=== PATIENT | female | born 1965 | race Caucasian/White ===

== ENCOUNTER 2018-07-09 14:42 | Inpatient (IN) | payer OTHER, SELFPAY ==
[2018-07-09 15:32] LABS: BASO % 0.1 % (0.0-1.0); HEMATOCRIT 39.3 % (36.0-47.0); HEMOGLOBIN 12.8 g/dl (12.0-15.5); IMMATURE GRANULOCYTE % 0.4 % (0-3.0); LYMPH % 11.5 % (24.0-44.0); MEAN CORPUSCULAR HEMOGLOBIN 33.1 pg (27.0-33.0); MEAN CORPUSCULAR HGB CONC 32.6 g/dl (32.0-36.5); MEAN CORPUSCULAR VOLUME 101.6 fl (80.0-96.0); MONO # 0.8 10^3/uL (0.0-0.8); MONO % 9.9 % (0.0-5.0); NEUTROPHILS # 6.6 10^3/uL (1.8-7.7); NEUTROPHILS % 78.1 % (36.0-66.0); PLATELET COUNT, AUTOMATED 262 10^3/uL (150-450); RED BLOOD COUNT 3.87 10^6/uL (4.00-5.40); WHITE BLOOD COUNT 8.4 10^3/uL (4.0-10.0)
[2018-07-09 15:42] LABS: BEDSIDE GLUCOSE 90 MG/DL (70-105)
[2018-07-09 15:43] LABS: INR 0.94; PROTHROMBIN TIME 12.6 SECONDS (12.1-14.4)
[2018-07-09 15:44] LABS: PARTIAL THROMBOPLASTIN TIME 28.2 SECONDS (25.4-37.6)
[2018-07-09 15:51] LABS: CONTROL LINE HCG INT CTR LINE PRESENT; HCG, SERUM QUALITATIVE NEGATIVE (NEGATIVE)
[2018-07-09 15:55] LABS: AMMONIA < 10 uMOL/L (<32)
[2018-07-09 16:00] LABS: ALBUMIN 3.7 GM/DL (3.2-5.2); ALBUMIN/GLOBULIN RATIO 1.09 (1.00-1.93); ALKALINE PHOSPHATASE 110 U/L (45-117); ALT/SGPT 70 U/L (12-78); ANION GAP 8 MEQ/L (8-16); AST/SGOT 95 U/L (7-37); BILIRUBIN,DIRECT < 0.1 MG/DL (0.0-0.2); BILIRUBIN,TOTAL 0.4 MG/DL (0.2-1.0); BLOOD UREA NITROGEN 17 MG/DL (7-18); CALCIUM LEVEL 9.3 MG/DL (8.5-10.1); CARBON DIOXIDE LEVEL 33 MEQ/L (21-32); CHLORIDE LEVEL 100 MEQ/L (98-107); ETHYL ALCOHOL (ETHANOL) < 0.003 % (0.000-0.010); GLOMERULAR FILTRATION RATE > 60.0 (>51); GLUCOSE, FASTING 90 MG/DL (70-100); POTASSIUM SERUM 4.5 MEQ/L (3.5-5.1); SALICYLATE LEVEL 2.9 MG/DL (5.0-30.0); SODIUM LEVEL 141 MEQ/L (136-145); TOTAL PROTEIN 7.1 GM/DL (6.4-8.2); TROPONIN I 0.02 NG/ML (< 0.10)
[2018-07-09 16:02] LABS: LACTIC ACID SEPSIS PROTOCOL 1.1 MMOL/L (0.4-2.0)
[2018-07-09 16:11] LABS: ACETAMINOPHEN LEVEL < 2.0 UG/ML (10.0-30.0); CK-MB VALUE MASS 21.2 NG/ML (<3.6); CPK CREATINE PHOSPHOKINASE 1699 U/L (26-192); MB/CK RELATIVE INDEX 1.24 (< OR =4); THYROID STIMULATING HORMONE 0.696 uIU/ML (0.358-3.740)
[2018-07-09] MEDS: NS 1,000 ML IV ×2 (16:31→17:46)
[2018-07-09 16:52] LABS: KETONE, URINE AUTO RFX 2+ mg/dL (NEGATIVE); MUCUS, URINE RFX SMALL (NEGATIVE); NITRITE, URINE AUTO RFX NEGATIVE (NEGATIVE); RBC, URINE AUTO RFX 2 /HPF (0-3); SPECIFIC GRAVITY UR AUTO RFX 1.024 (1.002-1.035); SQUAM EPITHELIAL CELL UR AURFX 1 /HPF (0-6); WBC, URINE AUTO RFX 5 /HPF (0-3)
[2018-07-09 16:53] LABS: LEUKOCYTE ESTERASE UR AUTO RFX TRACE (NEGATIVE)
[2018-07-09 18:02] LABS: AMPHETAMINES LEVEL URINE NEGATIVE (NEGATIVE); BARBITURATES URINE NEGATIVE (NEGATIVE); BENZODIAZEPINES URINE NEGATIVE (NEGATIVE); CANNABINOIDS URINE NEGATIVE (NEGATIVE); COCAINE METABOLITE URINE NEGATIVE (NEGATIVE); METHADONE URINE NEGATIVE (NEGATIVE); OPIATES URINE NEGATIVE (NEGATIVE); PHENCYCLIDINE URINE NEGATIVE (NEGATIVE)
[2018-07-09] MEDS ORDERED: ACETAMINOPHEN TAB 650MG DOSE (2X325MG) PO (19:30)
[2018-07-09] MEDS ORDERED: PERCOCET 5MG/325MG TAB PO (19:30)
[2018-07-09] MEDS ORDERED: ONDANSETRON 4MG/2ML VIAL (J2405) IV (19:30)
[2018-07-09 19:40] LABS: CSF MONONUCLEAR CELL % 25.8 % (0-0); CSF POLYMORPHONUCLEAR CELL % 74.2 % (0-0); CSF RBC 10 10^3/uL (<2); CSF WBC 31 /uL (0-10)
[2018-07-09 19:42] LABS: CSF RBC < 2 10^3/uL (<2)
[2018-07-09 19:51] LABS: APPEARANCE, CSF HAZY (CLEAR); COLOR, CSF PINK (COLORLESS); CSF TUBE# CELL CNT TUBE 1
[2018-07-09 19:52] LABS: APPEARANCE, CSF CLEAR (CLEAR); COLOR, CSF COLORLESS (COLORLESS); CSF DIFF IF INDICATED? NO (NO); CSF DIFF IF INDICATED? YES (NO); CSF TUBE# CELL CNT TUBE 4; CSF WBC 4 /uL (0-10)
[2018-07-09 19:57] LABS: CSF TUBE# GLU TUBE 2; CSF TUBE# TP TUBE 2; GLUCOSE CSF 57 MG/DL (40-75); TOTAL PROTEIN,CSF 39.6 MG/DL (15-45)
[2018-07-09 22:48] LABS: TROPONIN I < 0.02 NG/ML (< 0.10)
[2018-07-09 22:59] LABS: CK-MB VALUE MASS 10.4 NG/ML (<3.6); CPK CREATINE PHOSPHOKINASE 1286 U/L (26-192)
[2018-07-10] MEDS: LR 1,000 ML IV ×2 (01:39→08:49)
[2018-07-10] MEDS: SENOKOT S TAB PO ×2 (01:40→08:47)
[2018-07-10] MEDS: ENOXAPARIN 40 MG/0.4 ML SYRINGE (J1650) SC ×2 (01:43→20:34)
[2018-07-10 05:30] LABS: HEMATOCRIT 35.4 % (36.0-47.0); HEMOGLOBIN 11.7 g/dl (12.0-15.5); MEAN CORPUSCULAR HGB CONC 33.1 g/dl (32.0-36.5); MEAN CORPUSCULAR VOLUME 99.7 fl (80.0-96.0); PLATELET COUNT, AUTOMATED 223 10^3/uL (150-450); RED BLOOD COUNT 3.55 10^6/uL (4.00-5.40); RED CELL DISTRIBUTION WIDTH 11.9 % (11.5-14.5); WHITE BLOOD COUNT 6.6 10^3/uL (4.0-10.0)
[2018-07-10 05:49] LABS: ALBUMIN 3.2 GM/DL (3.2-5.2); ALBUMIN/GLOBULIN RATIO 0.97 (1.00-1.93); ALKALINE PHOSPHATASE 95 U/L (45-117); ALT/SGPT 58 U/L (12-78); ANION GAP 7 MEQ/L (8-16); AST/SGOT 62 U/L (7-37); BILIRUBIN,TOTAL 0.4 MG/DL (0.2-1.0); BLOOD UREA NITROGEN 13 MG/DL (7-18); CALCIUM LEVEL 8.6 MG/DL (8.5-10.1); CARBON DIOXIDE LEVEL 29 MEQ/L (21-32); CHLORIDE LEVEL 105 MEQ/L (98-107); CK-MB VALUE MASS 5.3 NG/ML (<3.6); CPK CREATINE PHOSPHOKINASE 908 U/L (26-192); CREATININE FOR GFR 0.46 MG/DL (0.55-1.30); GLOMERULAR FILTRATION RATE > 60.0 (>51); GLUCOSE, FASTING 82 MG/DL (70-100); MB/CK RELATIVE INDEX 0.58 (< OR =4); POTASSIUM SERUM 3.8 MEQ/L (3.5-5.1); SODIUM LEVEL 141 MEQ/L (136-145); TOTAL PROTEIN 6.5 GM/DL (6.4-8.2); TROPONIN I < 0.02 NG/ML (< 0.10)
[2018-07-10] MEDS: THIAMINE 100 MG TAB PO (08:47)
[2018-07-10] MEDS: MULTIVITAMINS/MINERALS THERAP 1 TAB PO (08:47)
[2018-07-10] MEDS: FOLIC ACID 1 MG TAB PO (08:47)
[2018-07-10] MEDS: VANCOMYCIN HCL 1,000 MG, VIAL MATE ADAPTER 1 EACH in D5W 250 ML IV (14:54)
[2018-07-10] MEDS: diazePAM 2 MG TAB PO (15:42)
[2018-07-10] MEDS: POTASSIUM CHLORIDE 10 MEQ SR TABLET PO ×2 (15:57→20:35)
[2018-07-10] MEDS: MAG SULF 1GM/100ML (MAG RUN) 1 GM in APPROPRIATE DILUENT 1 EA IV ×2 (17:30→18:12)
[2018-07-10] MEDS: MAGNESIUM OXIDE 400 MG TAB (MAG-OX) PO (20:35)
[2018-07-10] MEDS: MEXILETINE 150 MG CAP PO (22:12)
[2018-07-11 00:27] LABS: ANION GAP 5 MEQ/L (8-16); BLOOD UREA NITROGEN 6 MG/DL (7-18); CALCIUM LEVEL 8.3 MG/DL (8.5-10.1); CARBON DIOXIDE LEVEL 30 MEQ/L (21-32); CHLORIDE LEVEL 109 MEQ/L (98-107); CREATININE FOR GFR 0.41 MG/DL (0.55-1.30); GLOMERULAR FILTRATION RATE > 60.0 (>51); GLUCOSE, FASTING 111 MG/DL (70-100); MAGNESIUM LEVEL 2.1 MG/DL (1.8-2.4); POTASSIUM SERUM 3.5 MEQ/L (3.5-5.1); SODIUM LEVEL 144 MEQ/L (136-145)
[2018-07-11] MEDS: POTASSIUM CHLORIDE 10 MEQ SR TABLET PO ×3 (01:37→21:24)
[2018-07-11] MEDS: MEXILETINE 150 MG CAP PO ×3 (05:32→21:24)
[2018-07-11] MEDS: CEFTAROLINE FOSAMIL 600 MG in D5W MINI-BAG PLUS 50 ML IV ×2 (05:32→17:15)
[2018-07-11 06:23] LABS: HEMATOCRIT 33.9 % (36.0-47.0); HEMOGLOBIN 11.7 g/dl (12.0-15.5); MEAN CORPUSCULAR HEMOGLOBIN 32.8 pg (27.0-33.0); MEAN CORPUSCULAR HGB CONC 34.5 g/dl (32.0-36.5); PLATELET COUNT, AUTOMATED 256 10^3/uL (150-450); RED BLOOD COUNT 3.57 10^6/uL (4.00-5.40); RED CELL DISTRIBUTION WIDTH 11.7 % (11.5-14.5); WHITE BLOOD COUNT 6.8 10^3/uL (4.0-10.0)
[2018-07-11 06:43] LABS: ALBUMIN 3.2 GM/DL (3.2-5.2); ALBUMIN/GLOBULIN RATIO 1.03 (1.00-1.93); ALKALINE PHOSPHATASE 89 U/L (45-117); ALT/SGPT 47 U/L (12-78); ANION GAP 5 MEQ/L (8-16); AST/SGOT 38 U/L (7-37); BILIRUBIN,TOTAL 0.3 MG/DL (0.2-1.0); BLOOD UREA NITROGEN 6 MG/DL (7-18); CALCIUM LEVEL 8.5 MG/DL (8.5-10.1); CARBON DIOXIDE LEVEL 28 MEQ/L (21-32); CHLORIDE LEVEL 112 MEQ/L (98-107); CREATININE FOR GFR 0.57 MG/DL (0.55-1.30); GLOMERULAR FILTRATION RATE > 60.0 (>51); GLUCOSE, FASTING 110 MG/DL (70-100); MAGNESIUM LEVEL 2.3 MG/DL (1.8-2.4); SODIUM LEVEL 145 MEQ/L (136-145); TOTAL PROTEIN 6.3 GM/DL (6.4-8.2)
[2018-07-11 06:45] LABS: CPK CREATINE PHOSPHOKINASE 507 U/L (26-192)
[2018-07-11] MEDS: LISINOPRIL 5 MG TAB PO ×2 (09:23→21:23)
[2018-07-11] MEDS: MAGNESIUM OXIDE 400 MG TAB (MAG-OX) PO ×2 (09:23→21:24)
[2018-07-11] MEDS ORDERED: SLF 3 ML SYR IV (11:00)
[2018-07-11] MEDS: SLF 3 ML SYR IV ×2 (13:55→21:24)
[2018-07-11] MEDS: ENOXAPARIN 40 MG/0.4 ML SYRINGE (J1650) SC (21:24)
[2018-07-12] MEDS: MEXILETINE 150 MG CAP PO ×3 (06:01→21:25)
[2018-07-12] MEDS: SLF 3 ML SYR IV ×3 (06:01→22:00)
[2018-07-12 06:19] LABS: HEMATOCRIT 34.9 % (36.0-47.0); MEAN CORPUSCULAR HGB CONC 34.4 g/dl (32.0-36.5); MEAN CORPUSCULAR VOLUME 95.9 fl (80.0-96.0); PLATELET COUNT, AUTOMATED 258 10^3/uL (150-450); RED BLOOD COUNT 3.64 10^6/uL (4.00-5.40); RED CELL DISTRIBUTION WIDTH 11.6 % (11.5-14.5); WHITE BLOOD COUNT 5.9 10^3/uL (4.0-10.0)
[2018-07-12 06:43] LABS: ALBUMIN 3.1 GM/DL (3.2-5.2); ALKALINE PHOSPHATASE 88 U/L (45-117); ALT/SGPT 42 U/L (12-78); ANION GAP 6 MEQ/L (8-16); AST/SGOT 23 U/L (7-37); BILIRUBIN,TOTAL 0.4 MG/DL (0.2-1.0); BLOOD UREA NITROGEN 3 MG/DL (7-18); CALCIUM LEVEL 8.6 MG/DL (8.5-10.1); CARBON DIOXIDE LEVEL 26 MEQ/L (21-32); CHLORIDE LEVEL 112 MEQ/L (98-107); CREATININE FOR GFR 0.57 MG/DL (0.55-1.30); GLOMERULAR FILTRATION RATE > 60.0 (>51); GLUCOSE, FASTING 103 MG/DL (70-100); MAGNESIUM LEVEL 1.8 MG/DL (1.8-2.4); POTASSIUM SERUM 3.9 MEQ/L (3.5-5.1); SODIUM LEVEL 144 MEQ/L (136-145); TOTAL PROTEIN 6.4 GM/DL (6.4-8.2)
[2018-07-12 07:05] LABS: ALBUMIN/GLOBULIN RATIO 0.94 (1.00-1.93)
[2018-07-12] MEDS: POTASSIUM CHLORIDE 10 MEQ SR TABLET PO ×2 (09:47→21:26)
[2018-07-12] MEDS: LISINOPRIL 10 MG TAB PO ×2 (09:48→21:27)
[2018-07-12] MEDS: MAGNESIUM OXIDE 400 MG TAB (MAG-OX) PO ×2 (09:48→21:26)
[2018-07-12] MEDS: ACETAMINOPHEN TAB 650MG DOSE (2X325MG) PO ×2 (09:49→21:26)
[2018-07-12] MEDS: ENOXAPARIN 40 MG/0.4 ML SYRINGE (J1650) SC (21:25)
[2018-07-13] MEDS: MEXILETINE 150 MG CAP PO ×3 (05:25→20:44)
[2018-07-13] MEDS: LISINOPRIL 10 MG TAB PO ×2 (05:25→20:44)
[2018-07-13] MEDS: SLF 3 ML SYR IV ×3 (05:40→20:45)
[2018-07-13 05:41] LABS: HEMATOCRIT 35.4 % (36.0-47.0); HEMOGLOBIN 12.4 g/dl (12.0-15.5); MEAN CORPUSCULAR HEMOGLOBIN 32.7 pg (27.0-33.0); MEAN CORPUSCULAR VOLUME 93.4 fl (80.0-96.0); PLATELET COUNT, AUTOMATED 301 10^3/uL (150-450); RED BLOOD COUNT 3.79 10^6/uL (4.00-5.40); RED CELL DISTRIBUTION WIDTH 11.5 % (11.5-14.5); WHITE BLOOD COUNT 5.8 10^3/uL (4.0-10.0)
[2018-07-13 05:58] LABS: ALBUMIN 3.5 GM/DL (3.2-5.2); ALBUMIN/GLOBULIN RATIO 1.09 (1.00-1.93); ALKALINE PHOSPHATASE 90 U/L (45-117); ALT/SGPT 43 U/L (12-78); ANION GAP 6 MEQ/L (8-16); AST/SGOT 31 U/L (7-37); BILIRUBIN,TOTAL 0.4 MG/DL (0.2-1.0); BLOOD UREA NITROGEN 4 MG/DL (7-18); CARBON DIOXIDE LEVEL 25 MEQ/L (21-32); CHLORIDE LEVEL 112 MEQ/L (98-107); CREATININE FOR GFR 0.65 MG/DL (0.55-1.30); GLOMERULAR FILTRATION RATE > 60.0 (>51); GLUCOSE, FASTING 102 MG/DL (70-100); MAGNESIUM LEVEL 1.9 MG/DL (1.8-2.4); POTASSIUM SERUM 3.8 MEQ/L (3.5-5.1); SODIUM LEVEL 143 MEQ/L (136-145); TOTAL PROTEIN 6.7 GM/DL (6.4-8.2)
[2018-07-13] MEDS ORDERED: amLODIPine 5 MG TAB PO (09:00)
[2018-07-13] MEDS: ACETAMINOPHEN TAB 650MG DOSE (2X325MG) PO ×2 (10:33→20:43)
[2018-07-13] MEDS: POTASSIUM CHLORIDE 10 MEQ SR TABLET PO ×2 (10:35→20:45)
[2018-07-13] MEDS: MAGNESIUM OXIDE 400 MG TAB (MAG-OX) PO ×2 (10:36→20:44)
[2018-07-13] MEDS: amLODIPine 5 MG TAB PO ×2 (10:36→20:44)
[2018-07-13] MEDS: ENOXAPARIN 40 MG/0.4 ML SYRINGE (J1650) SC (20:42)
[2018-07-14 00:07] LABS: COXSACKIE TYPE B1 Negative (Neg:<1:8); COXSACKIE TYPE B2 Negative (Neg:<1:8); COXSACKIE TYPE B3 Negative (Neg:<1:8); COXSACKIE TYPE B4 Negative (Neg:<1:8); COXSACKIE TYPE B5 Negative (Neg:<1:8); COXSACKIE TYPE B6 Negative (Neg:<1:8)
[2018-07-14] MEDS: MEXILETINE 150 MG CAP PO (05:44)
[2018-07-14] MEDS: SLF 3 ML SYR IV (05:45)
[2018-07-14 06:35] LABS: HEMATOCRIT 37.1 % (36.0-47.0); HEMOGLOBIN 13.2 g/dl (12.0-15.5); MEAN CORPUSCULAR HEMOGLOBIN 33.1 pg (27.0-33.0); MEAN CORPUSCULAR HGB CONC 35.6 g/dl (32.0-36.5); PLATELET COUNT, AUTOMATED 328 10^3/uL (150-450); RED BLOOD COUNT 3.99 10^6/uL (4.00-5.40); RED CELL DISTRIBUTION WIDTH 11.8 % (11.5-14.5); WHITE BLOOD COUNT 5.9 10^3/uL (4.0-10.0)
[2018-07-14 07:25] LABS: ALBUMIN 3.5 GM/DL (3.2-5.2); ALKALINE PHOSPHATASE 93 U/L (45-117); ALT/SGPT 44 U/L (12-78); ANION GAP 9 MEQ/L (8-16); AST/SGOT 26 U/L (7-37); BILIRUBIN,TOTAL 0.4 MG/DL (0.2-1.0); BLOOD UREA NITROGEN 13 MG/DL (7-18); CALCIUM LEVEL 9.2 MG/DL (8.5-10.1); CARBON DIOXIDE LEVEL 23 MEQ/L (21-32); CHLORIDE LEVEL 111 MEQ/L (98-107); CREATININE FOR GFR 0.64 MG/DL (0.55-1.30); GLOMERULAR FILTRATION RATE > 60.0 (>51); GLUCOSE, FASTING 104 MG/DL (70-100); MAGNESIUM LEVEL 2.1 MG/DL (1.8-2.4); POTASSIUM SERUM 3.7 MEQ/L (3.5-5.1); SODIUM LEVEL 143 MEQ/L (136-145)
[2018-07-14] MEDS: MAGNESIUM OXIDE 400 MG TAB (MAG-OX) PO (10:41)
[2018-07-14] MEDS: POTASSIUM CHLORIDE 10 MEQ SR TABLET PO (10:41)
[2018-07-14] MEDS: amLODIPine 5 MG TAB PO (10:45)
[2018-07-14] MEDS: LISINOPRIL 10 MG TAB PO (10:45)
[2018-07-14] MEDS: ACETAMINOPHEN TAB 650MG DOSE (2X325MG) PO (10:46)
== END 2018-07-14 11:54 | disposition home or self-care (01) | DRG 52 ==
LOC: M PCU 07-10 00:16 → M MSPAV 07-13 14:40 → M ED 14:42 → M ED INP 19:17
PROC: 009U3ZX Drainage of Spinal Canal, Percutaneous Approach, Diagnostic (ICD-10-PCS; principal; 2018-07-09)
DX: G93.41 Metabolic encephalopathy (principal); I47.2 Ventricular tachycardia; M62.82 Rhabdomyolysis; I11.9 Hypertensive heart disease without heart failure; I45.81 Long QT syndrome; I34.1 Nonrheumatic mitral (valve) prolapse; A08.4 Viral intestinal infection, unspecified; J30.2 Other seasonal allergic rhinitis; G45.4 Transient global amnesia; Z90.710 Acquired absence of both cervix and uterus